=== PATIENT | male | born 1955 | race Caucasian/White ===

== ENCOUNTER → 2016-12-10 | Outpatient (CLI) | payer BC ==
--- NOTE | 2016-12-10 22:20 | CTL ---
EXAMINATION TYPE: CT Low Dose Lung DATE OF EXAM ORDERED: 12/10/2016 HISTORY: 51-year-old male tobacco use, lung cancer screening CT DLP: [address] CTDI: 2.6 mGy Automated exposure control for dose reduction was used. SCREENING VISIT: Baseline COMPARISON: None TECHNIQUE: Low dose computed tomography scan was performed through the chest at 1 mm thick sections a nd reconstructed images in the coronal plane at [address] DIAGNOSTIC QUALITY: Satisfactory FINDINGS: The heart is normal size without pericardial effusion. Minimal coronary vascular calcifications are p resent. Ascending aorta borderline ectatic at 3.5 cm. There is conventional branching anatomy. Borderline ect atic upper descending thoracic aorta at 3.0 cm. Prominent but nonenlarged 8 mm AP window lymph node. No thoracic lymphadenopathy by CT size criteria. Normal variant azygous fissure. There is mild to moderate diffuse bronchial wall thickening. There is mild to moderate centrilobular emphysema. Biapical pleural-parenchymal scarring is present. 4 mm left apical pulmonary nodule axial image 45. No additional pulmonary nodules seen. No consolidation or pleural effusion. Visualized upper abdomen shows no gross abnormality. Bones: No osseous destructive process. IMPRESSION: 1. LungRADS 2 - benign appearance or behavior; solitary 4 mm left apical pulmonary nodule. 2. COPD with either superimposed acute bronchitis or a prominent component of chronic bronchitis. RECOMMENDATION: 1. Continue annual screening with low-dose CT. 2. Smoking cessation.
== END ==
LOC: RADCTMAIN 16:15
PROVIDERS: ATTEND Family Medicine
DX: Z12.2 Encounter for screening for malignant neoplasm of respiratory organs (principal); R91.1 Solitary pulmonary nodule; J44.9 Chronic obstructive pulmonary disease, unspecified; Z87.891 Personal history of nicotine dependence

== ENCOUNTER → 2017-06-26 | Outpatient (CLI) | payer BC ==
--- NOTE | 2017-06-26 18:05 | XR ---
EXAMINATION TYPE: XR KUB DATE OF EXAM: 06/26/2017 COMPARISON: NONE HISTORY: Difficulty urinating for 6 months. TECHNIQUE: Single view FINDINGS: There is no sign of intestinal obstruction or pneumoperitoneum. Fecal pattern is normal. Th ere is a small phlebolith in the pelvis on the left side. I see no pathologic calcifications over the kidneys. There is no sign of a mass. IMPRESSION: Nonacute abdomen.
== END | disposition home or self-care (01) ==
LOC: RADXRMAIN 17:43
PROVIDERS: ATTEND Urology
DX: N40.1 Benign prostatic hyperplasia with lower urinary tract symptoms (principal); R39.12 Poor urinary stream; R35.0 Frequency of micturition; R35.1 Nocturia
CPT/HCPCS: 74018

== ENCOUNTER → 2017-12-11 | Outpatient (CLI) | payer BC ==
--- NOTE | 2017-12-12 09:03 | CTL ---
EXAMINATION TYPE: CT Low Dose Lung DATE OF EXAM ORDERED: 12/11/2017 HISTORY: Tobacco abuse. Lung cancer screening CT DLP: 71.[address] CTDI: 1.9 mGy Automated exposure control for dose reduction was used. SCREENING VISIT: Second COMPARISON: 12/10/2016 TECHNIQUE: Low dose computed tomography scan was performed through the chest at 1 mm thick sections a nd reconstructed images in the coronal plane at [address] DIAGNOSTIC QUALITY: Satisfactory FINDINGS: LUNG NODULES: There is an unchanged solid left apical 4 mm pulmonary nodule on series 4 image 43. Subpleural solid stable 2 mm nodule seen in the right lung apex on image 49. Stable 2 mm solid left upper lobe pulmonary nodule on image 84. LUNGS: COPD: Severity: Mild to moderate centrilobular Fibrosis: Severity: None Lymph nodes: Nonenlarged Other findings: An azygous lobe and fissure are incidentally seen. Biapical pleural parenchymal scarr ing is again noted. Additionally there is bibasilar peribronchial cuffing is seen on the prior sugges tive of chronic bronchitis or chronic reactive airway disease. RIGHT PLEURAL SPACE: Effusion: None Calcification: None Thickening: None Pneumothorax: None LEFT PLEURAL SPACE: Effusion: None Calcification: None Thickening: None Pneumothorax: None HEART: Heart Size: Nonenlarged Coronary calcification: Mild Pericardial effusion: Trace OTHER FINDINGS: Upper abdomen: Unremarkable Bony thorax: Mild multilevel degenerative change. Supraclavicular region: No adenopathy IMPRESSION: Lung RADS 2-benign appearance or behavior-bilateral subcentimeter pulmonary nodules, unch anged from the prior superimposed upon mild to moderate centrilobular emphysema and persistent lower lobe peribronchial cuffing indicative of either chronic bronchitis or chronic reactive airway disease . FOLLOW UP CT CHEST RECOMMENDATION: Annual low dose CT thorax CT LUNG RAD: Lung-Rad 2 Benign Appearance or Behavior
== END | disposition home or self-care (01) ==
LOC: RADCTMAIN 16:21
PROVIDERS: ATTEND Nurse Practitioner Adult Health
DX: Z12.2 Encounter for screening for malignant neoplasm of respiratory organs (principal); R91.8 Other nonspecific abnormal finding of lung field; J43.2 Centrilobular emphysema; Z87.891 Personal history of nicotine dependence

== ENCOUNTER → 2018-12-11 | Outpatient (CLI) | payer BC ==
--- NOTE | 2018-12-12 10:56 | CTL ---
EXAMINATION TYPE: CT Low Dose Lung DATE OF EXAM ORDERED: 12/11/2018 HISTORY: Personal history of tobacco abuse. Lung cancer screening CT DLP: 104.[address] CTDI: 2.7 mGy Automated exposure control for dose reduction was used. SCREENING VISIT: Subsequent COMPARISON: 12/11/2017 and 12/10/2016 TECHNIQUE: Low dose computed tomography scan was performed through the chest at 1 mm thick sections a nd reconstructed images in the coronal plane at [address] DIAGNOSTIC QUALITY: Satisfactory FINDINGS: LUNG NODULES: Present, detailed below: There is a stable 4 mm left apical pulmonary nodule on series 4 image 33 that is solid in nature. Stable subpleural 2 mm right apical pulmonary nodule on image 43 that is also solid. In the left upper lobe there is a stable 2 mm pulmonary nodule that is solid on image 74. No new suspicious nodules are seen. LUNGS: COPD: Severity: Mild to moderate Fibrosis: Severity: Biapical pleural-parenchymal scarring Lymph nodes: Nonenlarged Other findings: Incidentally noted azygous lobe and fissure. Chronic peribronchial cuffing is redemon strated, increasing at the lung bases. RIGHT PLEURAL SPACE: Effusion: None Calcification: None Thickening: None Pneumothorax: None LEFT PLEURAL SPACE: Effusion: None Calcification: None Thickening: None Pneumothorax: None HEART: Heart Size: Normal Coronary calcification: Mild Pericardial effusion: None OTHER FINDINGS: Upper abdomen: There are 2 punctate left upper pole nonobstructing renal calculi. Too small to accura tely characterize hypoattenuated left hepatic lobe lesion measures approximately 7 mm. Additional hyp oattenuated too small to accurately characterize left upper lobe lesion measures 5 mm. Bony thorax: Mild multilevel degenerative disc disease. Supraclavicular region: Unremarkable IMPRESSION: 1. Lung RADS 2-benign appearance or behavior. Again there are bilateral subcentimeter pulmonary nodul es that are unchanged from the prior exams. Given stability these appear benign. However continued an nual low dose CT thorax is recommended in this patient with personal history of tobacco abuse. 2. Mildly increasing lower lobe predominant peribronchial cuffing. Consider superimposed bronchitis o n chronic reactive airway disease in this patient with underlying COPD. FOLLOW UP CT CHEST RECOMMENDATION: Annual low dose CT thorax CT LUNG RAD: Lung-Rad 2 Benign Appearance or Behavior
== END | disposition home or self-care (01) ==
LOC: RADCTMAIN 15:42
PROVIDERS: ATTEND Family Medicine
DX: R91.8 Other nonspecific abnormal finding of lung field (principal); F17.210 Nicotine dependence, cigarettes, uncomplicated